=== PATIENT | male | born 1980 | race Caucasian/White ===

== ENCOUNTER 2016-10-09 18:01 | Emergency (ER) | payer BC ==
[~2016-10-09] VITALS: Ht 177.8 cm; Wt 97.5 kg
[2016-10-09 18:18] VITALS: BP 124/88
== END 2016-10-09 20:23 | disposition left against medical advice (07) ==
LOC: ER 18:20
DX: H66.91 Otitis media, unspecified, right ear (principal); Z53.21 Procedure and treatment not carried out due to patient leaving prior to being seen by health care provider